=== PATIENT | female | born 1945 | race Caucasian/White ===

== ENCOUNTER → 2017-03-01 | Outpatient (CLI) | payer MEDICARE, BC ==
[~2017-03-01] MED LIST: ASA CHILDREN'S81 MG PO; DIOVAN80 MG PO; HYDROCODON-ACE1 EAC4 PO; IMITREX DPS100 MG PO; MAALOX DPS30 ML PO; PROTONIX40 MG PO; TENORMIN DPS50 MG PO; TYLENOL DPS325 MG PO
--- NOTE | ~2017-03-01 | SS ---
ADMIT: 03/01/2017 RM/LOC: [facility] MR#: [id number] [id number] [place], [place] [id number] [address] [place], [place] [id number] Sleep Study SEX: F AGE: 71 : 1945 STUDY DATE: 03/01/2017 REFERRING PHYSICIAN: Joon Cuevas CLINICAL HISTORY: This is a 71-year-old female, body mass index of 37.7, 67 inches tall, 240 pounds, with symptoms of snoring, occasionally waking up gasping for breath, daytime fatigue, undergoing evaluation for obstructive sleep apnea. TECHNICAL DESCRIPTION: Diagnostic polysomnogram performed on night of 03/01/2017, attended by trained special procedure technologist. DIAGNOSTIC POLYSOMNOGRAM FINDINGS: SLEEP: Total time in bed 388 minutes, total sleep time 275.5 minutes, sleep efficiency 71%. 61.7% of time was spent in stage II sleep, 12.9% of time was spent in stage REM. BREATHING: [id number] positional and REM related obstructive sleep apnea with apnea-hypopnea index of 7.8. During the study, there were 1 mixed apnea and 35 obstructive hypopneas noted. OXYGEN SATURATION: Mean sleeping of 89%. Lowest oxygen saturation is 79%. 61% of time was spent saturating 80% to 89%. Cardiac average heart rate 57 beats per minute. MOVEMENTS/POSITION: During the study, the patient slept in the supine lateral position with periodic leg movement index of 23.3. Moderate snoring was noted during the study. IMPRESSION/PLAN: [id number]-hm-vuvixxbq positional and REM related obstructive sleep apnea with apnea-hypopnea 7.8. Supine apnea-hypopnea 22.6. Recommendations include CPAP titration. Recommend losing weight. Recommend avoiding sedative and alcohol. Recommend refrain from driving if excessively sleepy. Recommend avoiding sleeping in supine position. Clinical correlation needed. CPAP titration is recommended. Dannie Donaldson MD/ margaret JOB #: [id number] CC: Willie Martini MD, Attending Physician Willie Martini MD, Family Physician Willie Martini MD
== END | disposition home or self-care (01) ==
LOC: RESC 20:05
DX: G47.30 Sleep apnea, unspecified (principal); G47.9 Sleep disorder, unspecified; G47.00 Insomnia, unspecified; G47.33 Obstructive sleep apnea (adult) (pediatric)